=== PATIENT | male | born 1935 | race Caucasian/White ===

== ENCOUNTER → 2016-10-20 | Outpatient (CLI) | payer OTHER ==
[~2016-10-20] MED LIST: ASPI1TAB PO; AUGM875T27 PO; BACITAB3 PO; COZA50TA PO; LEVA750T PO; LEVO175T2 PO; LOPR50TA PO; LOSA25TA8 PO; MULTTAB50 PO; NITR4TASL SL; OMEP20TA PO; PRED50TA PO; ROSU10TA PO; TYLE325T5 PO; VICO5TAB16 PO; VITA100T20 PO
--- NOTE | 2016-10-20 10:52 | REP ---
Clinical: Shortness of breath and cough . Comparison: 03/31/2014 . Technique: PA and lateral. Findings: The mediastinum and cardiac silhouette are normal. The lung tse are clear and without acute consolidation, effusion, or pneumothorax. The skeletal structures are intact and normal. Impression: 1. No acute cardiopulmonary process. Signed by Panda Jackson MD 10/20/2016 10:44 A
== END ==
LOC: M RAD 10:23
PROVIDERS: ATTEND Physician Assistant
DX: R06.02 Shortness of breath (principal); R05 Cough

== ENCOUNTER 2017-06-25 09:59 | Emergency (ER) | payer OTHER ==
[~2017-06-25] VITALS: Ht 172.7 cm; Wt 90.1 kg
[~2017-06-25 09:59] MED LIST changes: -AUGM875T27 PO; +AUGM875T28 PO; +BACITAB PO; -BACITAB3 PO; +CRES10TA32 PO; -LEVA750T PO; +LEVA750T7 PO; +LOPR1TAB6 PO; -LOPR50TA PO; -ROSU10TA PO
--- NOTE | 2017-06-25 11:13 | REP ---
Chest one-view HISTORY: Chest pain Comparison: 10/20/2016 The lungs are clear. The heart is normal in size. The pulmonary vasculature is normal in appearance. Impression: No acute disease. Signed by Gume Maria MD 06/25/2017 11:04 A
[2017-06-25 11:16] LABS: INR 1.06
[2017-06-25 11:18] LABS: BASO % 0.5 % (0.0-1.0); EOS % 2.1 % (0.0-3.0); LARGE UNSTAINED CELL % 4.7 % (0.0-4.0); LYMPH % 21.4 % (24.0-44.0); MEAN CORPUSCULAR HGB CONC 36.5 g/dl (32.0-36.5); MEAN CORPUSCULAR VOLUME 87.7 fl (80.0-96.0); MONO % 6.9 % (0.0-5.0); NEUTROPHILS # 3.1 K/mm3 (1.8-7.7); NEUTROPHILS % 64.4 % (36.0-66.0); PLATELET COUNT, AUTOMATED 139 k/mm3 (150-450); RED CELL DISTRIBUTION WIDTH 13.6 % (11.5-14.5); WHITE BLOOD COUNT 4.7 K/mm3 (4.0-10.0)
[2017-06-25 11:19] LABS: ADD MANUAL DIFFER NO; DIFF SLIDE NUMBER 214; EOS # 0.1 K/mm3 (0.0-0.50); LARGE UNSTAINED CELL # 0.2 K/mm3 (0.0-0.4); MONO # 0.3 K/mm3 (0.0-0.8)
[2017-06-25 11:41] LABS: ALT/SGPT 21 U/L (12-78); AST/SGOT 18 U/L (15-37)
[2017-06-25 11:42] LABS: ALBUMIN 3.4 GM/DL (3.2-5.2); ALBUMIN/GLOBULIN RATIO 0.87 (1.00-1.93); ALKALINE PHOSPHATASE 82 U/L (45-117); BILIRUBIN,DIRECT 0.2 MG/DL (0.0-0.2); BILIRUBIN,TOTAL 0.6 MG/DL (0.2-1.0); TOTAL PROTEIN 7.3 GM/DL (6.4-8.2)
[2017-06-25 12:10] LABS: BLOOD UREA NITROGEN 12 MG/DL (7-18); GLUCOSE, FASTING 98 MG/DL (83-110)
[2017-06-25 12:11] LABS: ANION GAP 6 MEQ/L (8-16); CALCIUM LEVEL 8.6 MG/DL (8.8-10.2); CARBON DIOXIDE LEVEL 29 MEQ/L (21-32); CHLORIDE LEVEL 107 MEQ/L (98-107); CREATININE FOR GFR 0.89 MG/DL (0.70-1.30); FREE T4 1.06 NG/DL (0.76-1.46); GLOMERULAR FILTRATION RATE > 60.0 (>35); POTASSIUM SERUM 3.7 MEQ/L (3.5-5.1); SODIUM LEVEL 142 MEQ/L (136-145)
[2017-06-25] MEDS ORDERED: ISOVUE-370 76% 100ML VIAL (Q9967) As Ordered ONE (12:52)
--- NOTE | 2017-06-25 13:32 | REP ---
Clinical: Chest pain and shortness of breath. Technique: Axial contrast enhanced images from the thoracic inlet to the upper abdomen using 100 ml Isovue 370 intravenous contrast material with imaging in the arterial phase of enhancement. Coronal and sagittal re-formations subsequently obtained. Findings: The pulmonary arteries are well enhanced and without evidence for pulmonary embolus. The thoracic aorta demonstrates moderate atherosclerotic changes without aneurysm or dissection. Heart and pericardium are normal and without significant cardiomegaly or pericardial effusion. Bilateral lung tse demonstrate chronic age-related interstitial changes and mild emphysematous changes with scattered basilar fibroatelectatic change. No consolidation, pleural effusion or pneumothorax. No obvious, significant nodule or mass lesion. No axillary, hilar or mediastinal adenopathy. Surrounding musculoskeletal structures demonstrate age-related changes without focal osseous abnormality. Impression: 1. No evidence for pulmonary embolus. Moderate atherosclerotic changes of the aorta appreciated without evidence for thoracic aortic aneurysm or dissection. 2. Lung tse demonstrate chronic age-related interstitial changes along with mild emphysematous changes and scattered basilar fibroatelectatic changes. No acute consolidation, effusion or pneumothorax. Signed by Panda Jackson MD 06/25/2017 01:23 P
--- NOTE | 2017-06-25 13:39 | REP ---
Clinical: Abdominal pain and shortness of breath with history of abdominal aortic aneurysm. Technique: Axial contrast enhanced images from the lung bases to the pubic symphysis using 100 ml Isovue 370 intravenous contrast material image acquisition in the arterial phase of enhancement. Coronal and sagittal re-formations were obtained. Comparison: None. Findings: Lung bases demonstrate chronic interstitial and emphysematous changes with minimal bibasilar fibroatelectatic change. Visualized portions of the heart and pericardium without cardiomegaly or pericardial effusion. Liver, spleen, pancreas, gallbladder, bilateral adrenal glands and kidneys are relatively normal although mild renal cortical atrophic changes suggested. The enteric system is without obstruction or acute inflammatory process. Sigmoid diverticula noted without acute diverticulitis. Pelvis demonstrates normal bladder and enlarged prostate gland having mild mass effect on the base of the bladder. No ascites. No adenopathy. No free air. Musculoskeletal structures demonstrate age-related degenerative change including chronic grade 1 anterolisthesis at the L5-S1 level. The abdominal aorta demonstrates moderate partially calcified atheromatous plaquing and evidence for known fusiform infrarenal abdominal aortic aneurysm measuring approximately 4.1 cm maximal diameter and 4.4 cm craniocaudal length terminating above the level of the bifurcation to iliac arteries. No periaortic fluid or inflammatory changes are appreciated. Impression: 1. Moderate atherosclerotic changes of the aorta with known infrarenal abdominal aortic aneurysm as described above. No periaortic inflammatory changes or fluid to suggest active process. No evidence for abdominal aortic dissection. 2. Scattered sigmoid diverticula without acute diverticulitis. 3. Enlarged prostate gland with mass effect on the base of the bladder. 4. No further acute abdominopelvic pathology appreciated. Signed by Panda Jackson MD 06/25/2017 01:30 P
[2017-06-25 17:06] VITALS: BP 160/74
--- NOTE | 2017-06-25 18:29 | ECGEPIP ---
Stationary ECG Study [facility] - ED Test Date: 2017-06-25 Pat Name: JAKY GUTIERREZ Department: Room: - Gender: M Translation Director: samantha : 1935 Requested By: CHRISTIANA Ca Order Number: [id number] Reading MD: Ruy Flowers Measurements Intervals [place] Rate: 53 P: 31 RI: 149 QRS: -21 QRSD: 106 T: 49 QT: 408 QTc: 385 Interpretive Statements SINUS BRADYCARDIA WITH MARKED SINUS ARRHYTHMIA PRWP NO PRIORS Electronically Signed On 06-25-2017 18:29:21 EDT by Ruy Flowers
== END 2017-06-25 17:16 | disposition home or self-care (01) ==
LOC: M ED 09:59
DX: R07.89 Other chest pain (principal); I25.10 Atherosclerotic heart disease of native coronary artery without angina pectoris; I25.2 Old myocardial infarction; N40.0 Benign prostatic hyperplasia without lower urinary tract symptoms; E03.9 Hypothyroidism, unspecified; R06.02 Shortness of breath
CPT/HCPCS: 71010; 71275; 74174; 80048; 80076; 82550; 82553; 83690; 83880; 84439; 84443; 84484; 85025; 85379; 85610; 85730; 87040; 93005; 93041; 94760; 99285; Q9967

== ENCOUNTER 2018-11-09 12:23 | Emergency (ER) | payer OTHER, MEDICARE ==
[~2018-11-09] VITALS: Ht 172.7 cm; Wt 81.8 kg
[~2018-11-09 12:23] MED LIST changes: +LOSA25TA14 PO; -LOSA25TA8 PO
[2018-11-09] MEDS ORDERED: NS 1,000 ML IV SCH (13:51)
[2018-11-09] MEDS ORDERED: NS 1,000 ML IV ONE (14:00)
[2018-11-09] MEDS ORDERED: ONDANSETRON 4MG/2ML VIAL (J2405) IV ONE (14:00)
[2018-11-09 14:27] LABS: BASO % 0.3 % (0.0-1.0); EOS % 0.2 % (0.0-3.0); HEMOGLOBIN 14.8 g/dl (13.5-17.5); LYMPH # 1.3 10^3/uL (1.5-4.5); LYMPH % 21.6 % (24.0-44.0); MEAN CORPUSCULAR HEMOGLOBIN 30.5 pg (27.0-33.0); MEAN CORPUSCULAR HGB CONC 34.4 g/dl (32.0-36.5); MEAN CORPUSCULAR VOLUME 88.5 fl (80.0-96.0); MONO # 0.7 10^3/uL (0.0-0.8); MONO % 11.8 % (0.0-5.0); NEUTROPHILS % 65.8 % (36.0-66.0); PLATELET COUNT, AUTOMATED 148 10^3/uL (150-450); RED BLOOD COUNT 4.86 10^6/uL (4.30-6.10)
[2018-11-09 14:50] LABS: ALBUMIN 3.7 GM/DL (3.2-5.2); BILIRUBIN,DIRECT 0.1 MG/DL (0.0-0.2); BILIRUBIN,TOTAL 0.4 MG/DL (0.2-1.0); CALCIUM LEVEL 8.9 MG/DL (8.8-10.2); CREATININE FOR GFR 1.29 MG/DL (0.70-1.30); GLOMERULAR FILTRATION RATE 56.8 (>35); POTASSIUM SERUM 3.8 MEQ/L (3.5-5.1); TOTAL PROTEIN 8.1 GM/DL (6.4-8.2)
[2018-11-09] MEDS ORDERED: ISOVUE-370 76% 100ML VIAL (Q9967) As Ordered ONE (14:56)
--- NOTE | 2018-11-09 15:41 | REP ---
CT abdomen and pelvis with IV but without oral contrast: History: Vomiting. Comparison CT study is from June 25, 2017. CT findings: Preliminary digital tubing machine tender radiograph shows air and fluid in the colon. The lung bases are clear on axial CT images. There is mild diffuse fatty infiltration of the liver. No liver mass lesion is seen. The spleen is unremarkable. No adrenal lesion is observed on either side. The gallbladder is unremarkable by CT imaging. No pancreatic cyst or mass is seen. Vascular calcification is observed. There is an accessory splenule at the pancreatic tail inferior and medial to the pancreas. There is a retroaortic left renal vein. The kidneys are morphologically intact and enhance symmetrically. There are tiny subcentimeter cortical cysts. There is an infrarenal abdominal aortic aneurysm which measures 4.2 cm in AP dimension. No luz elena aneurysmal hemorrhage is seen. No retroperitoneal mass or adenopathy is seen. No pelvic mass or adenopathy is observed. A right inguinal hernia is noted containing the non-inflamed appendix. (Amyand hernia). There is left colonic diverticulosis without CT evidence of diverticulitis. Urinary bladder and prostate are unremarkable. The colon contains fluid and air consistent with enteritis. Impression: 1. Bowel gas pattern consistent with enteritis. No obstructive lesion. 2. Left colonic diverticulosis. 3. Right inguinal hernia contains a non-inflamed appendix. (Amyand hernia). 4. 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 This is unchanged. Electronically Signed by Dave Nettles MD 11/09/2018 05:39 P
[2018-11-09] MEDS ORDERED: VANC125C2 PO (16:09)
[2018-11-09] MEDS ORDERED: ONDA4TAB6 PO (16:09)
[2018-11-09] MEDS ORDERED: VANCOMYCIN ORAL SOL 250MG/5ML ORAL SYRINGE PO ONE (16:15)
[2018-11-09 16:23] VITALS: BP 148/70
== END 2018-11-09 16:35 | disposition home or self-care (01) ==
LOC: M ED 12:23
DX: A04.72 Enterocolitis due to Clostridium difficile, not specified as recurrent (principal); I11.9 Hypertensive heart disease without heart failure; I25.10 Atherosclerotic heart disease of native coronary artery without angina pectoris; K21.9 Gastro-esophageal reflux disease without esophagitis; E03.9 Hypothyroidism, unspecified; C85.90 Non-Hodgkin lymphoma, unspecified, unspecified site; I71.4 Abdominal aortic aneurysm, without rupture; Z87.891 Personal history of nicotine dependence; Z88.8 Allergy status to other drugs, medicaments and biological substances; Z79.899 Other long term (current) drug therapy; Z79.82 Long term (current) use of aspirin; Z79.2 Long term (current) use of antibiotics
CPT/HCPCS: 74177; 80048; 80076; 82150; 83690; 85025; 87493; 93041; 96361; 96374; 99284; J2405; Q9967

== ENCOUNTER → 2021-07-24 | Outpatient (REF) | payer OTHER, MEDICARE ==
[~2021-07-24] MED LIST changes: -ASPI1TAB PO; +ASPI81TA26 PO; +CRES10TA PO; -CRES10TA32 PO; +OMEP-358 PO; -OMEP20TA PO; +ONDA4TAB6 PO; +VANC125C3 PO; -VICO5TAB16 PO; +VICO5TAB17 PO; -VITA100T20 PO; +VITA100T51 PO
== END ==
LOC: M SMT 11:17
PROVIDERS: ATTEND Urology
DX: C61 Malignant neoplasm of prostate (principal)

== ENCOUNTER → 2021-08-30 | Outpatient (CLI) | payer OTHER ==
[~2021-08-30] MED LIST changes: +ISOVUE-370 76% 100ML VIAL As Ordered ONE
--- NOTE | 2021-08-30 10:37 | REP ---
INDICATION: PROSTATE CA. COMPARISON: 11/09/2018 the latest prior TECHNIQUE: Standard helical technique after the intravenous administration of 100 cc Isovue 370. No oral bowel preparatory contrast was administered prior to the exam. FINDINGS: In the lateral basal segment of the right lower lobe there is a new 4 mm sized lung nodule. In the lateral basal segment of the left lower lobe there is an unchanged 4 mm size lung nodule. The liver, gallbladder, spleen, pancreas, adrenal glands, and kidneys are unchanged. There are small bilateral renal cysts status quo. There is an infrarenal abdominal aortic aneurysm which has gotten larger. Today this has an AP dimension of 4.6 cm previously 4.2 cm. No para-aortic adenopathy has developed. There is no significant change in appearance of the bowel loops. There is sigmoid colon diverticulosis status quo. There is no free fluid or free air. There is no mass or adenopathy. Once again, there is a right inguinal hernia which contains a portion of the cecum and the appendix. No abnormal fatty infiltration is seen in the adipose contained in the hernial sac. There is no evidence of free fluid or free air. There is no evidence of a mass or adenopathy. Bone window technique throughout the examination again shows advanced chronic spinal changes and discogenic changes. There are bilateral hip degenerative changes status quo. IMPRESSION: 1. The infrarenal abdominal aortic aneurysm has increased in size as described above. 2. Amyand's right inguinal hernia status quo. 3. There is no evidence of acute disease. Other findings as described above. <Electronically signed by Vaughn Rosas > 08/30/21 [id number]
--- NOTE | 2021-08-30 13:57 | REP ---
INDICATION: PROSTATE CA. COMPARISON: None. TECHNIQUE/RADIOTRACER AND DOSE: After the intravenous administration of 21.9 mCi of technetium 99 M MDP a total body bone scan was obtained. FINDINGS: There is patchy increased activity in the shoulders, knees, elbows, feet, and ankles. There is a subtle focal area of increased activity in the C7 level on the left posteriorly IMPRESSION: Findings, as described above, consistent with degenerative type uptake patterns. There is no compelling evidence for metastatic disease. <Electronically signed by Vaughn Rosas > 08/30/21 [id number]
== END ==
LOC: M RAD 08:43
PROVIDERS: ATTEND Urology
DX: C61 Malignant neoplasm of prostate (principal); K57.30 Diverticulosis of large intestine without perforation or abscess without bleeding; K40.90 Unilateral inguinal hernia, without obstruction or gangrene, not specified as recurrent; M16.0 Bilateral primary osteoarthritis of hip; I71.4 Abdominal aortic aneurysm, without rupture
CPT/HCPCS: 74177; 78306; A9503; Q9967

== ENCOUNTER → 2021-11-13 | Outpatient (CLI) | payer OTHER ==
[~2021-11-13] MED LIST changes: -ISOVUE-370 76% 100ML VIAL As Ordered ONE; +LOSA25TA13 PO; -LOSA25TA14 PO
== END ==
LOC: M RAD 10:04
PROVIDERS: ATTEND Family Medicine
DX: R91.8 Other nonspecific abnormal finding of lung field (principal); R59.0 Localized enlarged lymph nodes; J43.9 Emphysema, unspecified

== ENCOUNTER → 2021-12-25 | Outpatient (CLI) | payer OTHER, MEDICARE ==
[~2021-12-25] MED LIST changes: +LEVO150T7; +LOSA50TA28; +METO25TA4; +NITR0.4D6 TD; +VITMTA PO
== END ==
LOC: M LABSMTC 09:04
PROVIDERS: ATTEND Anesthesiology
DX: Z01.812 Encounter for preprocedural laboratory examination (principal); Z20.822 Contact with and (suspected) exposure to COVID-19

== ENCOUNTER 2021-12-30 06:45 | Day surgery (SDC) | payer OTHER, MEDICARE ==
[~2021-12-30] VITALS: Ht 172.7 cm; Wt 83.9 kg
[~2021-12-30 06:45] MED LIST changes: +NS 1,000 ML IV ONE
[2021-12-30 09:05] VITALS: BP 155/72
[2021-12-30] MEDS ORDERED: LIDOCAINE 2% 100MG/5ML SDV (FOR ANES.) As Ordered ONE (09:22)
[2021-12-30] MEDS ORDERED: propofoL 200 MG/20 ML VIAL As Ordered ONE (09:22)
== END 2021-12-30 09:16 | disposition home or self-care (01) ==
LOC: M OPP 06:45
PROVIDERS: ATTEND Internal Medicine Gastroenterology
DX: Z12.11 Encounter for screening for malignant neoplasm of colon (principal); D12.6 Benign neoplasm of colon, unspecified; K57.30 Diverticulosis of large intestine without perforation or abscess without bleeding; K64.8 Other hemorrhoids; I71.4 Abdominal aortic aneurysm, without rupture; C85.90 Non-Hodgkin lymphoma, unspecified, unspecified site; Z79.82 Long term (current) use of aspirin; Z79.899 Other long term (current) drug therapy; Z88.8 Allergy status to other drugs, medicaments and biological substances; Z87.891 Personal history of nicotine dependence; Z86.74 Personal history of sudden cardiac arrest; Z87.19 Personal history of other diseases of the digestive system; Z80.3 Family history of malignant neoplasm of breast; Z80.42 Family history of malignant neoplasm of prostate

== ENCOUNTER → 2022-02-03 | Outpatient (CLI) | payer OTHER, MEDICARE ==
[~2022-02-03] MED LIST changes: -NS 1,000 ML IV ONE
== END ==
LOC: M PLARAD 11:51
PROVIDERS: ATTEND Family Medicine
DX: R91.8 Other nonspecific abnormal finding of lung field (principal); R59.0 Localized enlarged lymph nodes; I71.4 Abdominal aortic aneurysm, without rupture; K40.90 Unilateral inguinal hernia, without obstruction or gangrene, not specified as recurrent
CPT/HCPCS: 78815; A9552

== ENCOUNTER → 2022-03-10 | Outpatient (CLI) | payer MEDICARE, OTHER | LOC: M LABSMTC 10:29 | PROVIDERS: ATTEND Anesthesiology | DX: Z01.812 Encounter for preprocedural laboratory examination (principal); Z20.822 Contact with and (suspected) exposure to COVID-19 ==

== ENCOUNTER 2022-03-14 06:56 | Day surgery (SDC) | payer OTHER ==
[~2022-03-14] VITALS: Ht 172.7 cm; Wt 82.1 kg
[~2022-03-14 06:56] MED LIST changes: +NS 1,000 ML IV ONE
[2022-03-14] MEDS ORDERED: fentaNYL 100 MCG/2 ML INJECTION As Ordered ONE (07:36)
[2022-03-14] MEDS ORDERED: LIDOCAINE 2% 100MG/5ML SDV (FOR ANES.) As Ordered ONE (07:36)
[2022-03-14] MEDS ORDERED: propofoL 200 MG/20 ML VIAL As Ordered ONE (07:36)
[2022-03-14 08:17] VITALS: BP 135/65
== END 2022-03-14 08:24 | disposition home or self-care (01) ==
LOC: M OPP 06:56
PROVIDERS: ATTEND Internal Medicine Gastroenterology
DX: K22.2 Esophageal obstruction (principal); R13.10 Dysphagia, unspecified; R93.3 Abnormal findings on diagnostic imaging of other parts of digestive tract; Z85.46 Personal history of malignant neoplasm of prostate; Z85.72 Personal history of non-Hodgkin lymphomas; I25.2 Old myocardial infarction; I71.4 Abdominal aortic aneurysm, without rupture; Z79.02 Long term (current) use of antithrombotics/antiplatelets; Z79.82 Long term (current) use of aspirin; Z79.899 Other long term (current) drug therapy; Z92.21 Personal history of antineoplastic chemotherapy; Z92.3 Personal history of irradiation; Z87.891 Personal history of nicotine dependence
CPT/HCPCS: 43235; J3010

== ENCOUNTER → 2022-03-25 | Outpatient (CLI) | payer OTHER ==
[~2022-03-25] MED LIST changes: -NS 1,000 ML IV ONE
== END ==
LOC: M WHC 09:57
PROVIDERS: ATTEND Urology
DX: C61 Malignant neoplasm of prostate (principal); M85.851 Other specified disorders of bone density and structure, right thigh; M85.852 Other specified disorders of bone density and structure, left thigh

== ENCOUNTER → 2022-05-15 | Outpatient (CLI) | payer OTHER | LOC: M RAD 07:20 | PROVIDERS: ATTEND Internal Medicine Pulmonary Disease | DX: R91.8 Other nonspecific abnormal finding of lung field (principal) ==

== ENCOUNTER → 2022-07-03 | Outpatient (REF) | LOC: M RAD 12:51 | PROVIDERS: ATTEND Physician Assistant Medical | DX: M25.561 Pain in right knee (principal); M17.11 Unilateral primary osteoarthritis, right knee; M11.261 Other chondrocalcinosis, right knee ==

== ENCOUNTER → 2022-07-09 | Outpatient (CLI) | payer OTHER ==
[~2022-07-09] MED LIST changes: +LIDO5DIS41 TOP
== END ==
LOC: M WUC 14:31
PROVIDERS: ATTEND Physician Assistant Medical
DX: M25.512 Pain in left shoulder (principal); R07.89 Other chest pain

== ENCOUNTER 2022-07-10 05:46 | Emergency (ER) | payer MEDICARE, OTHER ==
[~2022-07-10] VITALS: Ht 172.7 cm; Wt 82.7 kg
[~2022-07-10 05:46] MED LIST changes: -LIDO5DIS41 TOP
[2022-07-10 06:42] LABS: BASO % 0.4 % (0.0-1.0); EOS # 0.1 10^3/uL (0.0-0.5); EOS % 2.3 % (0.0-3.0); HEMATOCRIT 33.2 % (42.0-52.0); HEMOGLOBIN 11.3 g/dl (13.5-17.5); LYMPH # 1.3 10^3/uL (1.5-5.0); LYMPH % 22.2 % (24.0-44.0); MEAN CORPUSCULAR HEMOGLOBIN 30.7 pg (27.0-33.0); MEAN CORPUSCULAR VOLUME 90.2 fl (80.0-96.0); MONO # 0.4 10^3/uL (0.0-0.8); MONO % 7.6 % (2.0-8.0); NEUTROPHILS # 3.8 10^3/uL (1.5-8.5); PLATELET COUNT, AUTOMATED 142 10^3/uL (150-450); RED BLOOD COUNT 3.68 10^6/uL (4.30-6.10); WHITE BLOOD COUNT 5.6 10^3/uL (4.0-10.0)
[2022-07-10 07:28] LABS: CK-MB VALUE MASS 3.1 NG/ML (<3.6); MB/CK RELATIVE INDEX 3.16 (< OR =4)
[2022-07-10 07:36] LABS: ALBUMIN 3.3 GM/DL (3.2-5.2); ALT/SGPT 17 U/L (12-78); BILIRUBIN,DIRECT 0.1 MG/DL (0.0-0.2); BILIRUBIN,TOTAL 0.3 MG/DL (0.2-1.0); BLOOD UREA NITROGEN 18 MG/DL (7-18); CALCIUM LEVEL 8.7 MG/DL (8.8-10.2); CARBON DIOXIDE LEVEL 29 MEQ/L (21-32); CHLORIDE LEVEL 107 MEQ/L (98-107); CREATININE FOR GFR 1.06 MG/DL (0.70-1.30); GLOMERULAR FILTRATION RATE > 60.0 (>35); GLUCOSE, FASTING 103 MG/DL (70-100); LIPASE 128 U/L (73-393); SODIUM LEVEL 139 MEQ/L (136-145); TOTAL PROTEIN 6.7 GM/DL (6.4-8.2)
[2022-07-10] MEDS ORDERED: LIDOCAINE 5% (LIDODERM) PATCH TD ONE (08:00)
[2022-07-10] MEDS ORDERED: KETOROLAC 30 MG/ML 1ML VIAL IV ONE (08:00)
[2022-07-10 09:00] LABS: CK-MB VALUE MASS 2.9 NG/ML (<3.6); MB/CK RELATIVE INDEX 2.87 (< OR =4)
[2022-07-10 09:45] VITALS: BP 156/82
[2022-07-10] MEDS ORDERED: **NOTE PATIENT COMMENT** MISC XX SCH (21:00)
[2022-07-11] MEDS ORDERED: LIDO5DIS41 TOP (06:39)
== END 2022-07-10 10:08 | disposition home or self-care (01) ==
LOC: EDBD 05:46 → M ED 05:46
DX: S22.32XA Fracture of one rib, left side, initial encounter for closed fracture (principal); W22.8XXA Striking against or struck by other objects, initial encounter; Y93.89 Activity, other specified; R00.1 Bradycardia, unspecified; I25.2 Old myocardial infarction; I10 Essential (primary) hypertension; E78.5 Hyperlipidemia, unspecified; J44.9 Chronic obstructive pulmonary disease, unspecified; E03.9 Hypothyroidism, unspecified; K21.9 Gastro-esophageal reflux disease without esophagitis; Z79.82 Long term (current) use of aspirin; Z79.899 Other long term (current) drug therapy; Z88.8 Allergy status to other drugs, medicaments and biological substances
CPT/HCPCS: 71045; 71250; 80048; 80076; 82550; 82553; 83690; 84443; 84484; 85025; 93005; 93041; 94760; 96374; 99285; J1885

== ENCOUNTER 2023-02-09 10:08 | Emergency (ER) | payer MEDICARE, OTHER ==
[~2023-02-09] VITALS: Ht 172.7 cm; Wt 80.4 kg
[~2023-02-09 10:08] MED LIST changes: +LIDO5DIS41 TOP
[2023-02-09] MEDS ORDERED: ISOVUE-370 76% 100ML VIAL As Ordered ONE (12:21)
[2023-02-09 12:23] LABS: BASO % 0.3 % (0.0-1.0); EOS # 0.3 10^3/uL (0.0-0.5); EOS % 4.3 % (0.0-3.0); HEMATOCRIT 34.4 % (42.0-52.0); HEMOGLOBIN 11.8 g/dl (13.5-17.5); LYMPH # 1.6 10^3/uL (1.5-5.0); LYMPH % 26.6 % (24.0-44.0); MEAN CORPUSCULAR HEMOGLOBIN 30.8 pg (27.0-33.0); MEAN CORPUSCULAR HGB CONC 34.3 g/dl (32.0-36.5); MEAN CORPUSCULAR VOLUME 89.8 fl (80.0-96.0); MONO # 0.5 10^3/uL (0.0-0.8); MONO % 8.4 % (2.0-8.0); NEUTROPHILS # 3.6 10^3/uL (1.5-8.5); NEUTROPHILS % 60.1 % (36.0-66.0); PLATELET COUNT, AUTOMATED 159 10^3/uL (150-450); RED BLOOD COUNT 3.83 10^6/uL (4.30-6.10)
[2023-02-09 12:48] LABS: ALBUMIN 3.3 G/DL (3.2-5.2); BILIRUBIN,DIRECT 0.1 MG/DL (<0.4); BILIRUBIN,TOTAL 0.3 MG/DL (0.3-1.2); TOTAL PROTEIN 6.5 G/DL (5.7-8.2)
[2023-02-09 14:44] VITALS: BP 160/83
== END 2023-02-09 14:46 | disposition home or self-care (01) ==
LOC: M ED 10:08
DX: K40.90 Unilateral inguinal hernia, without obstruction or gangrene, not specified as recurrent (principal); Z85.46 Personal history of malignant neoplasm of prostate; Z88.8 Allergy status to other drugs, medicaments and biological substances; Z79.82 Long term (current) use of aspirin; Z79.899 Other long term (current) drug therapy
CPT/HCPCS: 36415; 74177; 80047; 80076; 83690; 85025; 99284; Q9967

== ENCOUNTER → 2023-08-04 | Outpatient (CLI) | payer OTHER, MEDICARE ==
[~2023-08-04] MED LIST changes: +BARIUM SULFATE 700 MG TABLET (E-Z-DISK) As Ordered ONE; -COZA50TA PO; +E-Z-PAQUE 96% w/w SUSP 176GM BTL As Ordered ONE; +LOSA-528 PO; +ONDA8TAB8 PO; +PRED5TA PO; +VARIBAR NECTAR 40% w/v 240ML SUSP BTL As Ordered ONE; +VARIBAR PUDDING 40% w/v 230ML TUBE As Ordered ONE; +ZYTI250T PO
== END ==
LOC: M RAD 10:31
PROVIDERS: ATTEND Nurse Practitioner Family
DX: R13.10 Dysphagia, unspecified (principal); Q39.4 Esophageal web

== ENCOUNTER 2023-08-11 07:25 | Emergency (ER) | payer MEDICARE, OTHER ==
[~2023-08-11] VITALS: Ht 172.7 cm; Wt 77.8 kg
[~2023-08-11 07:25] MED LIST changes: -BARIUM SULFATE 700 MG TABLET (E-Z-DISK) As Ordered ONE; -E-Z-PAQUE 96% w/w SUSP 176GM BTL As Ordered ONE; -VARIBAR NECTAR 40% w/v 240ML SUSP BTL As Ordered ONE; -VARIBAR PUDDING 40% w/v 230ML TUBE As Ordered ONE
[2023-08-11 10:57] VITALS: BP 140/60; TEMP 98.4; O2SAT 97
== END 2023-08-11 11:05 | disposition home or self-care (01) ==
LOC: M ED 07:25
DX: K40.90 Unilateral inguinal hernia, without obstruction or gangrene, not specified as recurrent (principal); I10 Essential (primary) hypertension; K21.9 Gastro-esophageal reflux disease without esophagitis; C61 Malignant neoplasm of prostate; E03.9 Hypothyroidism, unspecified; G47.33 Obstructive sleep apnea (adult) (pediatric); Z88.8 Allergy status to other drugs, medicaments and biological substances; Z79.82 Long term (current) use of aspirin; Z79.811 Long term (current) use of aromatase inhibitors; Z79.810 Long term (current) use of selective estrogen receptor modulators (SERMs); Z79.899 Other long term (current) drug therapy

== ENCOUNTER 2023-09-21 13:41 | Inpatient (IN) | payer MEDICAID, MEDICARE, OTHER ==
[~2023-09-21] VITALS: Ht 172.7 cm; Wt 74.0 kg
[~2023-09-21 13:41] MED LIST changes: -LEVO150T7; +LEVO150T7 PO; -LOSA50TA28; +LOSA50TA28 PO; -METO25TA4; +METO25TA4 PO
[2023-09-21] MEDS ORDERED: FLUTISP NARES (14:23)
[2023-09-21 14:44] LABS: BASO % 0.4 % (0.0-1.0); EOS # 0.1 10^3/uL (0.0-0.5); EOS % 1.5 % (0.0-3.0); HEMATOCRIT 31.4 % (42.0-52.0); HEMOGLOBIN 10.5 g/dl (13.5-17.5); LYMPH # 1.4 10^3/uL (1.5-5.0); LYMPH % 16.2 % (24.0-44.0); MEAN CORPUSCULAR HEMOGLOBIN 31.2 pg (27.0-33.0); MEAN CORPUSCULAR HGB CONC 33.4 g/dl (32.0-36.5); MEAN CORPUSCULAR VOLUME 93.2 fl (80.0-96.0); MONO # 0.4 10^3/uL (0.0-0.8); MONO % 4.8 % (2.0-8.0); NEUTROPHILS # 6.5 10^3/uL (1.5-8.5); NEUTROPHILS % 76.7 % (36.0-66.0); PLATELET COUNT, AUTOMATED 141 10^3/uL (150-450); RED BLOOD COUNT 3.37 10^6/uL (4.30-6.10); WHITE BLOOD COUNT 8.5 10^3/uL (4.0-10.0)
[2023-09-21 14:55] LABS: INR 1.24; PROTHROMBIN TIME 15.2 SECONDS (12.5-14.5)
[2023-09-21 15:11] LABS: CPK CREATINE PHOSPHOKINASE 57 U/L (46-171)
[2023-09-21 15:12] LABS: ALKALINE PHOSPHATASE 97 U/L (46-116); ALT/SGPT 31 U/L (7.0-40); AST/SGOT 34 U/L (<34); BILIRUBIN,DIRECT 0.3 MG/DL (<0.4); BILIRUBIN,TOTAL 0.6 MG/DL (0.3-1.2); BLOOD UREA NITROGEN 19 MG/DL (9-23); CARBON DIOXIDE LEVEL 27 MMOL/L (20-31); CHLORIDE LEVEL 107 MMOL/L (98-107); CK-MB VALUE MASS 2.3 NG/ML (<3.6); CREATININE FOR GFR 1.06 MG/DL (0.70-1.30); GLOMERULAR FILTRATION RATE > 60.0 (>35); GLUCOSE, FASTING 95 MG/DL (74-106); MB/CK RELATIVE INDEX 4.03 (< OR =4); POTASSIUM SERUM 3.8 MMOL/L (3.5-5.1); SODIUM LEVEL 141 MMOL/L (136-145); TOTAL PROTEIN 6.6 G/DL (5.7-8.2)
[2023-09-21 15:32] LABS: FREE T4 1.06 NG/DL (0.89-1.76)
[2023-09-21 16:01] LABS: RSV AMPLIFICATION NEGATIVE (NEGATIVE)
[2023-09-21 16:19] LABS: CK-MB VALUE MASS 2.1 NG/ML (<3.6)
[2023-09-21 16:20] LABS: MB/CK RELATIVE INDEX 3.68 (< OR =4)
[2023-09-21] MEDS ORDERED: FUROSEMIDE 20MG/2ML VIAL IV ONE ×2 (16:50→18:05)
[2023-09-21] MEDS: MAG SULF 1GM/100ML (MAG RUN) 1 GM in IV 1 EA IV SCH ×3 (17:21→19:26)
[2023-09-21] MEDS ORDERED: ACETAMINOPHEN TAB 650MG DOSE (2X325MG) PO PRN (18:00)
[2023-09-21] MEDS ORDERED: IPRATROPIUM 0.5MG/ALBUTEROL 2.5MG INH SOL UD 3ML (DUONEB) NEB PRN (18:25)
[2023-09-21] MEDS ORDERED: CETI-24 PO (18:58)
[2023-09-21] MEDS ORDERED: SENN-121 PO (18:59)
[2023-09-21] MEDS ORDERED: HOME MED LIST COMPLETE! XX SCH (19:00)
[2023-09-21] MEDS: ROSUVASTATIN 10 MG TAB (CRESTOR) PO SCH (21:02)
[2023-09-21] MEDS: METOPROLOL TART 25 MG TABLET PO SCH (21:03)
[2023-09-21] MEDS: SENOKOT S TAB PO SCH (21:03)
[2023-09-22 00:05] VITALS: BP 138/63; TEMP 97.7; O2SAT 93
[2023-09-22 04:00] VITALS: BP 147/67; TEMP 98.2; O2SAT 96
[2023-09-22] MEDS: LEVOTHYROXINE 150MCG TABLET (0.15MG) PO SCH (05:08)
[2023-09-22] MEDS: HEPARIN SOD (PORCINE) 5000UNITS/ML 1ML VIAL/SYRINGE SC SCH ×2 (05:08→17:54)
[2023-09-22 06:37] LABS: HEMATOCRIT 31.7 % (42.0-52.0); HEMOGLOBIN 10.7 g/dl (13.5-17.5); MEAN CORPUSCULAR HEMOGLOBIN 31.2 pg (27.0-33.0); MEAN CORPUSCULAR HGB CONC 33.8 g/dl (32.0-36.5); MEAN CORPUSCULAR VOLUME 92.4 fl (80.0-96.0); PLATELET COUNT, AUTOMATED 150 10^3/uL (150-450); RED BLOOD COUNT 3.43 10^6/uL (4.30-6.10); WHITE BLOOD COUNT 9.3 10^3/uL (4.0-10.0)
[2023-09-22 07:01] LABS: BLOOD UREA NITROGEN 19 MG/DL (9-23); CARBON DIOXIDE LEVEL 30 MMOL/L (20-31); CHLORIDE LEVEL 106 MMOL/L (98-107); CREATININE FOR GFR 1.07 MG/DL (0.70-1.30); GLOMERULAR FILTRATION RATE > 60.0 (>35); GLUCOSE, FASTING 96 MG/DL (74-106); MAGNESIUM LEVEL 1.6 MG/DL (1.8-2.4); POTASSIUM SERUM 3.7 MMOL/L (3.5-5.1); SODIUM LEVEL 142 MMOL/L (136-145)
[2023-09-22 08:00] VITALS: BP 144/72; TEMP 98.5; O2SAT 97
[2023-09-22] MEDS ORDERED: MAG SULF 1GM/100ML (MAG RUN) 1 GM in IV 1 EA IV SCH (08:00)
[2023-09-22] MEDS: ASPIRIN 81MG ENTERIC TABLET PO SCH (08:26)
[2023-09-22] MEDS: SENOKOT S TAB PO SCH ×2 (08:26→21:16)
[2023-09-22] MEDS: CETIRIZINE (ZyrTEC) 10 MG TAB PO SCH (08:26)
[2023-09-22] MEDS: MULTIVITAMINS/MINERALS THERAP 1 TAB PO SCH (08:26)
[2023-09-22] MEDS: OMEPRAZOLE 20MG CAP PO SCH (08:26)
[2023-09-22] MEDS: FUROSEMIDE 40MG/4ML VIAL IV SCH ×2 (08:36→17:54)
[2023-09-22] MEDS: FLUTICASONE PROP 0.05% NASAL SPRAY 16 GM (FLONASE) NARES SCH (08:36)
[2023-09-22] MEDS ORDERED: LOSARTAN 50MG TABLET PO SCH (09:00)
[2023-09-22 12:00] VITALS: BP 158/76; TEMP 97.9; O2SAT 91
[2023-09-22 16:00] VITALS: BP 147/69; TEMP 97.4; O2SAT 92
[2023-09-22 20:00] VITALS: BP 145/68; TEMP 98; O2SAT 98
[2023-09-22] MEDS: METOPROLOL TART 25 MG TABLET PO SCH (21:16)
[2023-09-22] MEDS: ROSUVASTATIN 10 MG TAB (CRESTOR) PO SCH (21:16)
[2023-09-23] VITALS (9 sets, daily range): BP systolic 132–170; BP diastolic 68–79; TEMP 97.5–98.3; O2SAT 92–99
[2023-09-23] MEDS: LEVOTHYROXINE 150MCG TABLET (0.15MG) PO SCH (05:16)
[2023-09-23] MEDS: HEPARIN SOD (PORCINE) 5000UNITS/ML 1ML VIAL/SYRINGE SC SCH ×2 (05:17→17:30)
[2023-09-23 05:40] LABS: HEMOGLOBIN 11.6 g/dl (13.5-17.5); MEAN CORPUSCULAR HEMOGLOBIN 31.1 pg (27.0-33.0); MEAN CORPUSCULAR HGB CONC 34.1 g/dl (32.0-36.5); MEAN CORPUSCULAR VOLUME 91.2 fl (80.0-96.0); PLATELET COUNT, AUTOMATED 164 10^3/uL (150-450); RED BLOOD COUNT 3.73 10^6/uL (4.30-6.10); WHITE BLOOD COUNT 7.2 10^3/uL (4.0-10.0)
[2023-09-23 06:00] LABS: BLOOD UREA NITROGEN 20 MG/DL (9-23); CALCIUM LEVEL 7.8 MG/DL (8.3-10.6); CARBON DIOXIDE LEVEL 32 MMOL/L (20-31); CHLORIDE LEVEL 102 MMOL/L (98-107); CREATININE FOR GFR 1.05 MG/DL (0.70-1.30); GLOMERULAR FILTRATION RATE > 60.0 (>35); GLUCOSE, FASTING 108 MG/DL (74-106); MAGNESIUM LEVEL 1.6 MG/DL (1.8-2.4); POTASSIUM SERUM 3.5 MMOL/L (3.5-5.1); SODIUM LEVEL 139 MMOL/L (136-145)
[2023-09-23] MEDS: MAG SULF 1GM/100ML (MAG RUN) 100 ML IV SCH ×2 (06:49→09:54)
[2023-09-23] MEDS: FUROSEMIDE 40MG/4ML VIAL IV SCH ×3 (09:00→17:29)
[2023-09-23] MEDS: FLUTICASONE PROP 0.05% NASAL SPRAY 16 GM (FLONASE) NARES SCH (09:54)
[2023-09-23] MEDS: POTASSIUM CHLORIDE 10MEQ SR TABLET PO SCH (09:55)
[2023-09-23] MEDS: ASPIRIN 81MG ENTERIC TABLET PO SCH (09:55)
[2023-09-23] MEDS: CETIRIZINE (ZyrTEC) 10 MG TAB PO SCH (09:55)
[2023-09-23] MEDS: OMEPRAZOLE 20MG CAP PO SCH (09:55)
[2023-09-23] MEDS: SENOKOT S TAB PO SCH ×2 (09:55→20:38)
[2023-09-23] MEDS: MULTIVITAMINS/MINERALS THERAP 1 TAB PO SCH (09:56)
[2023-09-23] MEDS: LOSARTAN 50MG TABLET PO SCH (10:05)
[2023-09-23] MEDS: MAGNESIUM OXIDE 400MG TAB (MAG-OX) PO SCH (17:30)
[2023-09-23] MEDS: ROSUVASTATIN 10 MG TAB (CRESTOR) PO SCH (20:37)
[2023-09-23] MEDS: METOPROLOL TART 25 MG TABLET PO SCH (20:37)
[2023-09-24 03:24] VITALS: BP 156/70; TEMP 97.5; O2SAT 98
[2023-09-24 06:02] LABS: HEMATOCRIT 37.3 % (42.0-52.0); HEMOGLOBIN 12.3 g/dl (13.5-17.5); MEAN CORPUSCULAR HEMOGLOBIN 30.4 pg (27.0-33.0); MEAN CORPUSCULAR VOLUME 92.3 fl (80.0-96.0); PLATELET COUNT, AUTOMATED 180 10^3/uL (150-450); RED BLOOD COUNT 4.04 10^6/uL (4.30-6.10); WHITE BLOOD COUNT 7.5 10^3/uL (4.0-10.0)
[2023-09-24] MEDS: LEVOTHYROXINE 150MCG TABLET (0.15MG) PO SCH (06:05)
[2023-09-24] MEDS: HEPARIN SOD (PORCINE) 5000UNITS/ML 1ML VIAL/SYRINGE SC SCH (06:05)
[2023-09-24 06:28] LABS: BLOOD UREA NITROGEN 18 MG/DL (9-23); CALCIUM LEVEL 8.5 MG/DL (8.3-10.6); CARBON DIOXIDE LEVEL 31 MMOL/L (20-31); CHLORIDE LEVEL 103 MMOL/L (98-107); CREATININE FOR GFR 0.98 MG/DL (0.70-1.30); GLOMERULAR FILTRATION RATE > 60.0 (>35); GLUCOSE, FASTING 100 MG/DL (74-106); MAGNESIUM LEVEL 1.8 MG/DL (1.8-2.4); POTASSIUM SERUM 4.2 MMOL/L (3.5-5.1); SODIUM LEVEL 141 MMOL/L (136-145)
[2023-09-24 08:32] VITALS: BP 146/78; TEMP 98.5; O2SAT 91
[2023-09-24] MEDS: ASPIRIN 81MG ENTERIC TABLET PO SCH (09:37)
[2023-09-24] MEDS: FUROSEMIDE 40MG/4ML VIAL IV SCH (09:37)
[2023-09-24 09:38] VITALS: BP 146/78
[2023-09-24] MEDS: SENOKOT S TAB PO SCH (09:38)
[2023-09-24] MEDS: LOSARTAN 50MG TABLET PO SCH (09:38)
[2023-09-24] MEDS: OMEPRAZOLE 20MG CAP PO SCH (09:38)
[2023-09-24] MEDS: MAGNESIUM OXIDE 400MG TAB (MAG-OX) PO SCH (09:38)
[2023-09-24] MEDS: MULTIVITAMINS/MINERALS THERAP 1 TAB PO SCH (09:38)
[2023-09-24] MEDS: POTASSIUM CHLORIDE 10MEQ SR TABLET PO SCH (09:39)
[2023-09-24] MEDS: CETIRIZINE (ZyrTEC) 10 MG TAB PO SCH (09:39)
[2023-09-24] MEDS: FLUTICASONE PROP 0.05% NASAL SPRAY 16 GM (FLONASE) NARES SCH (09:39)
[2023-09-24] MEDS ORDERED: POTA-136 PO (11:34)
[2023-09-24] MEDS ORDERED: MAGN400T2 PO (11:34)
[2023-09-24] MEDS ORDERED: LASI40TA9 PO (11:34)
== END 2023-09-24 13:26 | disposition home health service (06) | DRG 293 ==
LOC: M ED 13:41 → M ED INP 16:55 → OBSVTOIN 16:56 → M PCU 23:54
PROVIDERS: ADMIT Internal Medicine; ATTEND Internal Medicine
PROC: B246ZZZ Ultrasonography of Right and Left Heart (ICD-10-PCS; principal; 2023-09-24)
DX: I11.0 Hypertensive heart disease with heart failure (principal); I25.10 Atherosclerotic heart disease of native coronary artery without angina pectoris; I25.2 Old myocardial infarction; E78.5 Hyperlipidemia, unspecified; E03.9 Hypothyroidism, unspecified; I71.40 Abdominal aortic aneurysm, without rupture, unspecified; I50.9 Heart failure, unspecified; G47.33 Obstructive sleep apnea (adult) (pediatric); E83.42 Hypomagnesemia; C61 Malignant neoplasm of prostate; Z98.42 Cataract extraction status, left eye; Z92.21 Personal history of antineoplastic chemotherapy; Z87.891 Personal history of nicotine dependence; Z79.82 Long term (current) use of aspirin; Z79.890 Hormone replacement therapy; Z79.899 Other long term (current) drug therapy; Z88.8 Allergy status to other drugs, medicaments and biological substances; Z20.822 Contact with and (suspected) exposure to COVID-19

== ENCOUNTER → 2024-07-18 | Outpatient (CLI) | payer OTHER, MEDICARE ==
[~2024-07-18] MED LIST changes: +CETI-24 PO; +FLUTISP NARES; +LASI40TA9 PO; +MAGN400T2 PO; +ONDA-282 PO; +ONDA-284 PO; -ONDA4TAB6 PO; -ONDA8TAB8 PO; +POTA-136 PO; +SENN-121 PO
== END ==
LOC: M RAD 13:04
PROVIDERS: ATTEND Physician Assistant Medical
DX: M25.561 Pain in right knee (principal); M85.861 Other specified disorders of bone density and structure, right lower leg; M11.261 Other chondrocalcinosis, right knee; M79.89 Other specified soft tissue disorders; M25.461 Effusion, right knee

== ENCOUNTER → 2024-09-01 | Outpatient (CLI) | payer MEDICARE, OTHER ==
[~2024-09-01] MED LIST changes: +CLOP75TA2; +NITR0.4D6; +PANT40TA29 PO
== END ==
LOC: M PLAIMG 14:23
PROVIDERS: ATTEND Physician Assistant
DX: M25.551 Pain in right hip (principal)

== ENCOUNTER 2024-09-03 14:52 | Emergency (ER) | payer MEDICARE, OTHER ==
[~2024-09-03] VITALS: Ht 172.7 cm; Wt 72.0 kg
[2024-09-03] MEDS ORDERED: ISOVUE-370 76% 100ML VIAL As Ordered ONE (16:13)
[2024-09-03] MEDS: MORPHINE 2 MG/ML 1ML VIAL IV PRN (16:15)
[2024-09-03 16:39] LABS: ALBUMIN 2.9 G/DL (3.2-5.2); BILIRUBIN,DIRECT 0.1 MG/DL (<0.4); BILIRUBIN,TOTAL 0.3 MG/DL (0.3-1.2); TOTAL PROTEIN 7.3 G/DL (5.7-8.2)
[2024-09-03 16:46] LABS: BASO % 0.3 % (0.0-1.0); EOS # 0.1 10^3/uL (0.0-0.5); EOS % 1.7 % (0.0-3.0); HEMATOCRIT 28.9 % (42.0-52.0); HEMOGLOBIN 9.8 g/dl (13.5-17.5); LYMPH # 0.9 10^3/uL (1.5-5.0); LYMPH % 13.9 % (24.0-44.0); MEAN CORPUSCULAR HGB CONC 33.9 g/dl (32.0-36.5); MEAN CORPUSCULAR VOLUME 91.5 fl (80.0-96.0); MONO # 0.5 10^3/uL (0.0-0.8); MONO % 7.5 % (2.0-8.0); NEUTROPHILS % 76.4 % (36.0-66.0); PLATELET COUNT, AUTOMATED 211 10^3/uL (150-450); RED BLOOD COUNT 3.16 10^6/uL (4.30-6.10); WHITE BLOOD COUNT 6.6 10^3/uL (4.0-10.0)
[2024-09-03 17:31] VITALS: BP 138/63; TEMP 97.5; O2SAT 92
[2024-09-03] MEDS: NORCO 5/325MG TABLET (HOME DOSE PACK) PO ONE (17:37)
[2024-09-03] MEDS: NORCO, ANEXSIA 5/325MG TABLET (HYDROcodone/ACETAMINOPHEN) PO ONE (17:37)
== END 2024-09-03 17:46 | disposition home or self-care (01) ==
LOC: EDBD 14:52 → M ED 14:52
DX: K40.90 Unilateral inguinal hernia, without obstruction or gangrene, not specified as recurrent (principal); I48.91 Unspecified atrial fibrillation; I25.10 Atherosclerotic heart disease of native coronary artery without angina pectoris; I11.0 Hypertensive heart disease with heart failure; E03.9 Hypothyroidism, unspecified; K21.9 Gastro-esophageal reflux disease without esophagitis; I71.40 Abdominal aortic aneurysm, without rupture, unspecified; G47.33 Obstructive sleep apnea (adult) (pediatric); Z86.14 Personal history of Methicillin resistant Staphylococcus aureus infection; Z79.82 Long term (current) use of aspirin; Z79.899 Other long term (current) drug therapy; Z88.8 Allergy status to other drugs, medicaments and biological substances
CPT/HCPCS: 74177; 80047; 80076; 83605; 83690; 85025; 93005; 93041; 96374; 99284; Q9967

== ENCOUNTER → 2024-10-26 | Outpatient (CLI) | payer OTHER, MEDICARE ==
[2024-10-26 11:00] LABS: BASO % 0.3 % (0.0-1.0); EOS # 0.2 10^3/uL (0.0-0.5); EOS % 2.5 % (0.0-3.0); HEMATOCRIT 32.2 % (42.0-52.0); HEMOGLOBIN 10.8 g/dl (13.5-17.5); LYMPH # 1.2 10^3/uL (1.5-5.0); MEAN CORPUSCULAR HEMOGLOBIN 30.9 pg (27.0-33.0); MEAN CORPUSCULAR HGB CONC 33.5 g/dl (32.0-36.5); MONO # 0.4 10^3/uL (0.0-0.8); MONO % 7.2 % (2.0-8.0); NEUTROPHILS # 4.3 10^3/uL (1.5-8.5); NEUTROPHILS % 70.5 % (36.0-66.0); PLATELET COUNT, AUTOMATED 172 10^3/uL (150-450); WHITE BLOOD COUNT 6.1 10^3/uL (4.0-10.0)
[2024-10-26 11:24] LABS: BLOOD UREA NITROGEN 17 MG/DL (9-23); CARBON DIOXIDE LEVEL 31 MMOL/L (20-31); CHLORIDE LEVEL 106 MMOL/L (98-107); CREATININE FOR GFR 1.05 MG/DL (0.70-1.30); GLOMERULAR FILTRATION RATE > 60.0 (>35); GLUCOSE, FASTING 105 MG/DL (74-106); SODIUM LEVEL 141 MMOL/L (136-145)
== END ==
LOC: M LAB 09:51
PROVIDERS: ATTEND Internal Medicine Cardiovascular Disease
DX: I48.0 Paroxysmal atrial fibrillation (principal)

== ENCOUNTER → 2024-10-26 | Outpatient (CLI) | payer OTHER, MEDICARE ==
[2024-10-26 10:26] LABS: BASO % 0.3 % (0.0-1.0); EOS # 0.1 10^3/uL (0.0-0.5); EOS % 2.1 % (0.0-3.0); HEMATOCRIT 32.3 % (42.0-52.0); HEMOGLOBIN 10.9 g/dl (13.5-17.5); LYMPH # 1.2 10^3/uL (1.5-5.0); LYMPH % 18.9 % (24.0-44.0); MEAN CORPUSCULAR HGB CONC 33.7 g/dl (32.0-36.5); MEAN CORPUSCULAR VOLUME 91.8 fl (80.0-96.0); MONO # 0.4 10^3/uL (0.0-0.8); MONO % 6.7 % (2.0-8.0); NEUTROPHILS # 4.4 10^3/uL (1.5-8.5); NEUTROPHILS % 71.8 % (36.0-66.0); PLATELET COUNT, AUTOMATED 170 10^3/uL (150-450); RED BLOOD COUNT 3.52 10^6/uL (4.30-6.10); WHITE BLOOD COUNT 6.1 10^3/uL (4.0-10.0)
[2024-10-26 10:46] LABS: ALKALINE PHOSPHATASE 89 U/L (40-129); ALT/SGPT 13 U/L (7.0-40); AST/SGOT 20 U/L (<34); BILIRUBIN,TOTAL 0.3 MG/DL (0.3-1.2); BLOOD UREA NITROGEN 17 MG/DL (9-23); CALCIUM LEVEL 9.1 MG/DL (8.3-10.6); CARBON DIOXIDE LEVEL 31 MMOL/L (20-31); CHLORIDE LEVEL 105 MMOL/L (98-107); CREATININE FOR GFR 1.04 MG/DL (0.70-1.30); GLOMERULAR FILTRATION RATE > 60.0 (>35); GLUCOSE, FASTING 106 MG/DL (74-106); PROSTATIC SPECIFIC AG MONITOR 31.06 NG/ML (< 4.00); SODIUM LEVEL 142 MMOL/L (136-145); TOTAL PROTEIN 7.1 G/DL (5.7-8.2)
== END ==
LOC: M LAB 09:53
PROVIDERS: ATTEND Specialist
DX: C61 Malignant neoplasm of prostate (principal)

== ENCOUNTER 2024-11-08 16:47 | Emergency (ER) | payer OTHER, MEDICARE ==
[~2024-11-08] VITALS: Ht 172.7 cm; Wt 71.3 kg
[2024-11-08] MEDS: NS 500 ML IV ONE (18:29)
[2024-11-08 18:33] LABS: BASO % 0.2 % (0.0-1.0); EOS % 0.7 % (0.0-3.0); HEMATOCRIT 29.4 % (42.0-52.0); HEMOGLOBIN 9.8 g/dl (13.5-17.5); LYMPH # 0.9 10^3/uL (1.5-5.0); LYMPH % 15.4 % (24.0-44.0); MEAN CORPUSCULAR HEMOGLOBIN 30.5 pg (27.0-33.0); MEAN CORPUSCULAR HGB CONC 33.3 g/dl (32.0-36.5); MEAN CORPUSCULAR VOLUME 91.6 fl (80.0-96.0); MONO # 0.4 10^3/uL (0.0-0.8); MONO % 6.3 % (2.0-8.0); NEUTROPHILS # 4.4 10^3/uL (1.5-8.5); NEUTROPHILS % 76.9 % (36.0-66.0); PLATELET COUNT, AUTOMATED 144 10^3/uL (150-450); RED BLOOD COUNT 3.21 10^6/uL (4.30-6.10); WHITE BLOOD COUNT 5.7 10^3/uL (4.0-10.0)
[2024-11-08 18:57] LABS: BLOOD UREA NITROGEN 25 MG/DL (9-23); CALCIUM LEVEL 8.2 MG/DL (8.3-10.6); CARBON DIOXIDE LEVEL 27 MMOL/L (20-31); CHLORIDE LEVEL 109 MMOL/L (98-107); CREATININE FOR GFR 1.03 MG/DL (0.70-1.30); GLOMERULAR FILTRATION RATE > 60.0 (>35); GLUCOSE, FASTING 99 MG/DL (74-106); MAGNESIUM LEVEL 1.7 MG/DL (1.8-2.4); SODIUM LEVEL 144 MMOL/L (136-145)
[2024-11-08] MEDS: MAG SULF 1GM/100ML (MAG RUN) 1 GM in IV 1 EA IV ONE (19:05)
[2024-11-08 21:30] VITALS: BP 142/64; TEMP 98.2; O2SAT 98
== END 2024-11-08 21:30 | disposition home or self-care (01) ==
LOC: M ED 16:47
DX: A08.4 Viral intestinal infection, unspecified (principal); I48.91 Unspecified atrial fibrillation; I11.0 Hypertensive heart disease with heart failure; I25.10 Atherosclerotic heart disease of native coronary artery without angina pectoris; I25.2 Old myocardial infarction; E78.5 Hyperlipidemia, unspecified; I71.40 Abdominal aortic aneurysm, without rupture, unspecified
CPT/HCPCS: 80048; 83735; 85025; 96365; 99284; J3475

== ENCOUNTER 2024-11-26 17:42 | Emergency (ER) | payer OTHER ==
[~2024-11-26] VITALS: Ht 172.7 cm; Wt 70.9 kg
[~2024-11-26 17:42] MED LIST changes: +XTAN40CA PO
[2024-11-26 17:46] VITALS: BP 161/69; TEMP 97; O2SAT 97
[2024-11-26] MEDS ORDERED: LEUP1INJ4 (18:06)
[2024-11-26] MEDS: ONDANSETRON 4MG 2ML VIAL IV ONE (19:00)
[2024-11-26] MEDS: MORPHINE 2 MG/ML 1ML VIAL IV ONE (19:00)
[2024-11-26 19:30] LABS: BASO % 0.3 % (0.0-1.0); EOS # 0.2 10^3/uL (0.0-0.5); EOS % 2.7 % (0.0-3.0); HEMATOCRIT 29.6 % (42.0-52.0); HEMOGLOBIN 9.7 g/dl (13.5-17.5); LYMPH # 1.4 10^3/uL (1.5-5.0); LYMPH % 23.5 % (24.0-44.0); MEAN CORPUSCULAR HGB CONC 32.8 g/dl (32.0-36.5); MEAN CORPUSCULAR VOLUME 91.6 fl (80.0-96.0); MONO # 0.5 10^3/uL (0.0-0.8); MONO % 8.4 % (2.0-8.0); NEUTROPHILS # 3.8 10^3/uL (1.5-8.5); NEUTROPHILS % 64.8 % (36.0-66.0); PLATELET COUNT, AUTOMATED 154 10^3/uL (150-450); RED BLOOD COUNT 3.23 10^6/uL (4.30-6.10); WHITE BLOOD COUNT 5.9 10^3/uL (4.0-10.0)
[2024-11-26 19:49] LABS: BLOOD UREA NITROGEN 16 MG/DL (9-23); CALCIUM LEVEL 8.3 MG/DL (8.3-10.6); CARBON DIOXIDE LEVEL 30 MMOL/L (20-31); CHLORIDE LEVEL 105 MMOL/L (98-107); GLOMERULAR FILTRATION RATE > 60.0 (>35); GLUCOSE, FASTING 96 MG/DL (74-106); SODIUM LEVEL 141 MMOL/L (136-145)
== END 2024-11-26 21:40 | disposition home or self-care (01) ==
LOC: M ED 17:42
DX: K40.90 Unilateral inguinal hernia, without obstruction or gangrene, not specified as recurrent (principal); I48.91 Unspecified atrial fibrillation; I25.10 Atherosclerotic heart disease of native coronary artery without angina pectoris; I25.2 Old myocardial infarction; I10 Essential (primary) hypertension; K21.9 Gastro-esophageal reflux disease without esophagitis; K57.30 Diverticulosis of large intestine without perforation or abscess without bleeding; E78.5 Hyperlipidemia, unspecified; Z85.46 Personal history of malignant neoplasm of prostate; Z95.0 Presence of cardiac pacemaker; Z79.82 Long term (current) use of aspirin; Z79.899 Other long term (current) drug therapy; Z88.8 Allergy status to other drugs, medicaments and biological substances
CPT/HCPCS: 80048; 85025; 96374; 96375; 99284; J2405

== ENCOUNTER 2024-11-27 09:46 | Emergency (ER) | payer OTHER, MEDICARE ==
[~2024-11-27] VITALS: Ht 172.7 cm; Wt 72.0 kg
[~2024-11-27 09:46] MED LIST changes: +LEUP1INJ4; +VANC125C13 PO; -VANC125C3 PO
[2024-11-27 09:49] VITALS: TEMP 97.1
[2024-11-27 11:15] VITALS: O2SAT 98
[2024-11-27 12:19] VITALS: BP 130/63
== END 2024-11-27 12:20 | disposition home or self-care (01) ==
LOC: M ED 09:46
DX: K40.91 Unilateral inguinal hernia, without obstruction or gangrene, recurrent (principal); Z79.82 Long term (current) use of aspirin; Z79.899 Other long term (current) drug therapy; Z88.8 Allergy status to other drugs, medicaments and biological substances

== ENCOUNTER → 2024-12-20 | Outpatient (CLI) | payer MEDICARE, OTHER ==
[2024-12-20 11:40] LABS: BASO % 0.4 % (0.0-1.0); EOS # 0.1 10^3/uL (0.0-0.5); EOS % 2.1 % (0.0-3.0); HEMATOCRIT 33.2 % (42.0-52.0); HEMOGLOBIN 10.9 g/dl (13.5-17.5); LYMPH # 1.5 10^3/uL (1.5-5.0); LYMPH % 22.2 % (24.0-44.0); MEAN CORPUSCULAR HEMOGLOBIN 30.6 pg (27.0-33.0); MEAN CORPUSCULAR HGB CONC 32.8 g/dl (32.0-36.5); MEAN CORPUSCULAR VOLUME 93.3 fl (80.0-96.0); MONO # 0.5 10^3/uL (0.0-0.8); MONO % 7.2 % (2.0-8.0); NEUTROPHILS # 4.6 10^3/uL (1.5-8.5); NEUTROPHILS % 67.7 % (36.0-66.0); PLATELET COUNT, AUTOMATED 190 10^3/uL (150-450); RED BLOOD COUNT 3.56 10^6/uL (4.30-6.10); WHITE BLOOD COUNT 6.8 10^3/uL (4.0-10.0)
[2024-12-20 12:10] LABS: PROSTATIC SPECIFIC AG MONITOR 4.58 NG/ML (< 4.00)
[2024-12-20 12:11] LABS: ALBUMIN 3.2 G/DL (3.2-5.2); ALKALINE PHOSPHATASE 73 U/L (40-129); ALT/SGPT 11 U/L (7.0-40); AST/SGOT 16 U/L (<34); BILIRUBIN,TOTAL 0.3 MG/DL (0.3-1.2); BLOOD UREA NITROGEN 20 MG/DL (9-23); CALCIUM LEVEL 8.8 MG/DL (8.3-10.6); CARBON DIOXIDE LEVEL 30 MMOL/L (20-31); CHLORIDE LEVEL 103 MMOL/L (98-107); CREATININE FOR GFR 1.05 MG/DL (0.70-1.30); GLOMERULAR FILTRATION RATE > 60.0 (>35); GLUCOSE, FASTING 96 MG/DL (74-106); POTASSIUM SERUM 4.3 MMOL/L (3.5-5.1); SODIUM LEVEL 141 MMOL/L (136-145)
[2024-12-20 12:34] LABS: TESTOSTERONE < 7 NG/DL (241-827)
== END ==
LOC: M LAB 10:50
PROVIDERS: ATTEND Specialist
DX: C61 Malignant neoplasm of prostate (principal)

== ENCOUNTER 2025-03-02 10:48 | Observation (INO) | payer OTHER, MEDICARE ==
[~2025-03-02] VITALS: Ht 172.7 cm; Wt 72.6 kg
[~2025-03-02 10:48] MED LIST changes: -CLOP75TA2; +CLOP75TA2 PO; +LIDO1ADH93 TOP; -LIDO5DIS41 TOP; +METO1TAB32 PO; +NITR0.4S14 SL; -PRED50TA PO; +PRED50TA57 PO; +ROSU20TA86 PO; +THERTAB52 PO; +eligard
[2025-03-02] MEDS ORDERED: propofoL 200 MG/20 ML VIAL As Ordered ONE (11:32)
[2025-03-02] MEDS ORDERED: ONDANSETRON 4MG 2ML VIAL As Ordered ONE (11:32)
[2025-03-02] MEDS ORDERED: ROCURONIUM BROMIDE 50MG/5ML VIAL As Ordered ONE (11:32)
[2025-03-02] MEDS ORDERED: LIDOCAINE 2% 100MG/5ML SDV (FOR ANES.) As Ordered ONE (11:32)
[2025-03-02] MEDS ORDERED: fentaNYL 100 MCG/2 ML INJECTION As Ordered ONE (11:32)
[2025-03-02] MEDS ORDERED: ACETAMINOPHEN 1000MG/100ML IV BAG As Ordered ONE (11:35)
[2025-03-02] MEDS ORDERED: ETOMIDATE INJ 20MG/10ML VIAL As Ordered ONE (12:50)
[2025-03-02] MEDS: ceFAZolin SOD 2 GM IV ONCE IV ONE (13:04)
[2025-03-02] MEDS ORDERED: SUGAMMADEX SODIUM 500 MG/5 ML VIAL As Ordered ONE (13:20)
[2025-03-02] MEDS ORDERED: LABETALOL 100MG/20ML VIAL As Ordered ONE (13:25)
[2025-03-02] MEDS: LR 1,000 ML IV SCH ×2 (13:26→17:20)
[2025-03-02] MEDS ORDERED: MEPERIDINE 25 MG/ML 1ML VIAL IV PRN (14:05)
[2025-03-02] MEDS ORDERED: HYDROMORPHONE HCL 0.5 MG/ 0.5 ML SYRINGE IV PRN (14:05)
[2025-03-02] MEDS ORDERED: oxyCODONE 5MG TAB PO PRN (14:05)
[2025-03-02] MEDS ORDERED: fentaNYL 100 MCG/2 ML INJECTION IV PRN (14:05)
[2025-03-02] MEDS ORDERED: ONDANSETRON 4MG 2ML VIAL IV PRN (14:05)
[2025-03-02 16:21] LABS: IONIZED CALCIUM 4.7 MG/DL (4.5-5.3)
[2025-03-02 16:23] LABS: BASO % 0.1 % (0.0-1.0); EOS % 0.6 % (0.0-3.0); HEMATOCRIT 31.9 % (42.0-52.0); HEMOGLOBIN 10.9 g/dl (13.5-17.5); LYMPH # 0.8 10^3/uL (1.5-5.0); LYMPH % 10.5 % (24.0-44.0); MEAN CORPUSCULAR HEMOGLOBIN 31.7 pg (27.0-33.0); MEAN CORPUSCULAR HGB CONC 34.2 g/dl (32.0-36.5); MEAN CORPUSCULAR VOLUME 92.7 fl (80.0-96.0); MONO # 0.2 10^3/uL (0.0-0.8); MONO % 2.6 % (2.0-8.0); NEUTROPHILS # 6.1 10^3/uL (1.5-8.5); NEUTROPHILS % 85.1 % (36.0-66.0); PLATELET COUNT, AUTOMATED 118 10^3/uL (150-450); RED BLOOD COUNT 3.44 10^6/uL (4.30-6.10); WHITE BLOOD COUNT 7.2 10^3/uL (4.0-10.0)
[2025-03-02 16:30] LABS: ERYTHROCYTE SEDIMENTATION RATE 26 mm/hr (0-20)
[2025-03-02 16:52] LABS: CK-MB VALUE MASS 3.9 NG/ML (<3.6)
[2025-03-02 16:54] LABS: C REACTIVE PROTEIN QUANTITATIV < 0.50 MG/DL (<1.0); CPK CREATINE PHOSPHOKINASE 118 U/L (46-171)
[2025-03-02 16:55] LABS: ALBUMIN 3.3 G/DL (3.2-5.2); ALKALINE PHOSPHATASE 83 U/L (40-129); ALT/SGPT < 9 U/L (7.0-40); AST/SGOT 22 U/L (<34); BILIRUBIN,TOTAL 0.3 MG/DL (0.3-1.2); BLOOD UREA NITROGEN 19 MG/DL (9-23); CALCIUM LEVEL 8.7 MG/DL (8.3-10.6); CARBON DIOXIDE LEVEL 30 MMOL/L (20-31); CHLORIDE LEVEL 105 MMOL/L (98-107); CREATININE FOR GFR 1.03 MG/DL (0.70-1.30); GLOMERULAR FILTRATION RATE 69.9 (>35); GLUCOSE, FASTING 111 MG/DL (74-106); MAGNESIUM LEVEL 1.5 MG/DL (1.8-2.4); POTASSIUM SERUM 4.1 MMOL/L (3.5-5.1); SODIUM LEVEL 142 MMOL/L (136-145); TOTAL PROTEIN 6.7 G/DL (5.7-8.2)
[2025-03-02 17:01] LABS: PROCALCITONIN 0.09 ng/ml
[2025-03-02 17:20] VITALS: BP 139/67; TEMP 97.4; O2SAT 93
[2025-03-02] MEDS: MAG SULF 1GM/100ML (MAG RUN) 1 GM in IV 1 EA IV SCH (18:02)
[2025-03-02] MEDS: POTASSIUM CHLORIDE 10MEQ SR TABLET PO ONE (18:03)
[2025-03-02 18:18] LABS: KETONE, URINE AUTO RFX TRACE mg/dL (NEGATIVE); MUCUS, URINE RFX SMALL (NEGATIVE); NITRITE, URINE AUTO RFX NEGATIVE (NEGATIVE); RBC, URINE AUTO RFX 0 /HPF (0-3); SQUAM EPITHELIAL CELL UR AURFX 1 /HPF (0-6)
[2025-03-02 18:19] LABS: LEUKOCYTE ESTERASE UR AUTO RFX 2+ (NEGATIVE); WBC, URINE AUTO RFX 68 /HPF (0-3)
[2025-03-02 19:41] VITALS: BP 141/67; TEMP 97.8; O2SAT 93
[2025-03-02] MEDS: CALCIUM GLUCONATE 1,000 MG in DEXTROSE 5% (D5W) MINI-BAG PLU 100 ML IV ONE (20:04)
[2025-03-02] MEDS: NORCO, ANEXSIA 5/325MG TABLET (HYDROcodone/ACETAMINOPHEN) PO PRN (20:07)
[2025-03-02 21:08] LABS: IONIZED CALCIUM 4.6 MG/DL (4.5-5.3)
[2025-03-02 21:49] LABS: CK-MB VALUE MASS 5.4 NG/ML (<3.6); MAGNESIUM LEVEL 2.1 MG/DL (1.8-2.4)
[2025-03-02 21:51] LABS: MB/CK RELATIVE INDEX 3.12 (< OR =4)
[2025-03-03] VITALS: BP 141/67; PULSE 66; O2SAT 93
[2025-03-03 00:19] VITALS: BP 150/70; TEMP 98.1; O2SAT 97
[2025-03-03 03:32] LABS: IONIZED CALCIUM 4.7 MG/DL (4.5-5.3)
[2025-03-03 03:40] LABS: HEMATOCRIT 32.2 % (42.0-52.0); MEAN CORPUSCULAR HEMOGLOBIN 31.3 pg (27.0-33.0); MEAN CORPUSCULAR HGB CONC 34.2 g/dl (32.0-36.5); MEAN CORPUSCULAR VOLUME 91.7 fl (80.0-96.0); PLATELET COUNT, AUTOMATED 135 10^3/uL (150-450); RED BLOOD COUNT 3.51 10^6/uL (4.30-6.10); WHITE BLOOD COUNT 6.8 10^3/uL (4.0-10.0)
[2025-03-03 04:07] LABS: CK-MB VALUE MASS 5.1 NG/ML (<3.6)
[2025-03-03 04:08] LABS: MB/CK RELATIVE INDEX 2.96 (< OR =4)
[2025-03-03 04:11] VITALS: BP 134/77; TEMP 98.2; O2SAT 92
[2025-03-03 04:12] LABS: CALCIUM LEVEL 9.1 MG/DL (8.3-10.6); CREATININE FOR GFR 0.96 MG/DL (0.70-1.30); POTASSIUM SERUM 5.1 MMOL/L (3.5-5.1)
[2025-03-03 08:05] VITALS: BP 168/73; TEMP 97.5; O2SAT 97
[2025-03-03 09:30] VITALS: BP 142/86
[2025-03-03] MEDS: LOSARTAN 50MG TABLET PO SCH (09:30)
[2025-03-03] MEDS: PANTOPRAZOLE 40MG TAB PO SCH (09:31)
[2025-03-03] MEDS: SENOKOT S TAB PO SCH (09:31)
[2025-03-03] MEDS: LEVOTHYROXINE 150MCG TABLET (0.15MG) PO SCH (09:31)
[2025-03-03 09:47] LABS: MB/CK RELATIVE INDEX 3.15 (< OR =4)
== END 2025-03-03 10:47 | disposition home health service (06) ==
LOC: M SDC 10:48 → INTOOBSV 15:37 → M RR INP 15:37 → M PCU 17:19
PROVIDERS: ADMIT General Practice; ATTEND General Practice
DX: I47.29 Other ventricular tachycardia (principal); G93.41 Metabolic encephalopathy; F05 Delirium due to known physiological condition; I25.10 Atherosclerotic heart disease of native coronary artery without angina pectoris; K40.90 Unilateral inguinal hernia, without obstruction or gangrene, not specified as recurrent; I25.2 Old myocardial infarction; D63.8 Anemia in other chronic diseases classified elsewhere; E03.9 Hypothyroidism, unspecified; E78.00 Pure hypercholesterolemia, unspecified; K21.9 Gastro-esophageal reflux disease without esophagitis; I48.21 Permanent atrial fibrillation; G47.33 Obstructive sleep apnea (adult) (pediatric); Z98.61 Coronary angioplasty status; C61 Malignant neoplasm of prostate; C62.12 Malignant neoplasm of descended left testis; Z92.3 Personal history of irradiation; Z92.21 Personal history of antineoplastic chemotherapy; I71.40 Abdominal aortic aneurysm, without rupture, unspecified; I10 Essential (primary) hypertension; Z79.02 Long term (current) use of antithrombotics/antiplatelets; Z79.82 Long term (current) use of aspirin; J44.9 Chronic obstructive pulmonary disease, unspecified; F41.9 Anxiety disorder, unspecified; F32.A Depression, unspecified; R91.8 Other nonspecific abnormal finding of lung field
CPT/HCPCS: 36415; 49650; 70450; 71045; 80048; 80053; 81001; 82140; 82330; 82550; 82553; 83735; 83880; 84145; 84146; 84484; 85025; 85027; 85652; 86140; 87086; 93005; 96360; 96361; 97116; 97161; 97165; 97535; C1781; G0378; J0131; J0612; J0665; J0690; J1100; J1920; J2405; J3010; J3475; S2900

== ENCOUNTER → 2025-04-24 | Outpatient (CLI) | payer MEDICARE, OTHER ==
[~2025-04-24] MED LIST changes: +AMIO200T54 PO; +ASPI81CH33 PO; +AZIT-12 PO; +CEFD1CAP9 PO; +MAGN400C PO
== END ==
LOC: M RAD 08:51
PROVIDERS: ATTEND Nurse Practitioner Family
DX: I71.40 Abdominal aortic aneurysm, without rupture, unspecified (principal)

== ENCOUNTER → 2025-09-27 | Outpatient (CLI) | payer OTHER ==
[2025-09-27 10:00] LABS: ALT/SGPT 12.0 U/L (7.0-40); AST/SGOT 21.0 U/L (<34); CHOLESTEROL LEVEL 143.0 MG/DL (<200); CHOLESTEROL RISK RATIO 3.61 (<5); LDL CHOLESTEROL 67.4 MG/DL (<100); NON-HDL-C 103.4 MG/DL; TRIGLYCERIDES LEVEL 180.0 MG/DL (<150)
[2025-09-27 10:03] LABS: FREE T4 1.4 NG/DL (0.89-1.76)
== END ==
LOC: M RAD 08:12
PROVIDERS: ATTEND Internal Medicine Cardiovascular Disease
DX: I48.0 Paroxysmal atrial fibrillation (principal); E78.2 Mixed hyperlipidemia; Z13.29 Encounter for screening for other suspected endocrine disorder; I25.10 Atherosclerotic heart disease of native coronary artery without angina pectoris; I47.20 Ventricular tachycardia, unspecified